=== PATIENT | male | born 1975 | race Two or more races ===

== ENCOUNTER → 2024-07-05 | Emergency (ER) | payer OTHER ==
[~2024-07-05] VITALS: Ht 180.3 cm; Wt 122.5 kg
[~2024-07-05] MED LIST: AMBIEN10 MG PO; PROZAC20 MG PO; SEROQUEL50 MG PO; XANAX2 MG PO
[2024-07-05 07:54] LABS: HEMATOCRIT 47.2 % (39.0-48.0); HEMOGLOBIN 15.9 g/dL (13-16.00); MEAN CORPUSCULAR HEMOGLOBIN 29.4 pg (27.00-32.0); MEAN CORPUSCULAR HGB CONC 33.7 g/dl (32.0-36.0); PLATELET COUNT 212 K/uL (150-450); RED BLOOD COUNT 5.43 M/uL (4.00-6.00); RED CELL DISTRIBUTION WIDTH 15.2 % (11.5-14.5)
[2024-07-05 08:38] LABS: INR 1.07; PARTIAL THROMBOPLASTIN TIME 27.5 SECONDS (22.0-34.0); PROTHROMBIN TIME 11.6 SECONDS (9.0-11.5)
[2024-07-05 08:44] LABS: ALBUMIN 4.6 gm/dL (3.4-5.0); ALKALINE PHOSPHATASE 98 U/L (50-136); ALT/SGPT 38 U/L (12-78); ANION GAP 13 (10.0-20.0); AST/SGOT 28 U/L (15-37); BILIRUBIN TOTAL 0.35 mg/dL (0.3-1.2); BILIRUBIN,CONJUGATED < 0.10 mg/dL (0.0-0.2); BILIRUBIN,UNCONJUGATED 0.25 mg/dL (0.0-0.6); BLOOD UREA NITROGEN 20 mg/dL (7-18); BUN CREA RATIO 18 (7.0-25.0); CALCIUM 9.7 mg/dL (8.5-10.1); CARBON DIOXIDE 25 mEq/L (21-32); CHLORIDE 107 mmol/L (98-107); CREATININE SERUM 1.12 mg/dL (0.70-1.30); GFR 69.68; GLOBULINA 4.2 G/DL (2.4-3.5); GLUCOSE FASTING 88 mg/dL (65-100); OSMOLALITY SERUM 283 MOSM/KG (275-295); POTASSIUM 3.98 mEq/L (3.5-5.1); SODIUM 141 mmol/L (136-145); TOTAL PROTEIN 8.8 gm/dL (6.4-8.2)
[2024-07-05 11:42] LABS: URINE APPEARANCE Cloudy; URINE BILIRRUBIN Negative (NEGATIVE); URINE BLOOD Negative; URINE COLOR Yellow; URINE GLUCOSE Negative (NEGATIVE); URINE KETONE Trace (NEGATIVE); URINE LEUKOCYTE Negative; URINE NITRATE Negative; URINE PROTEIN Trace (NEGATIVE); URINE UROBILINOGEN 0.2 E.U./dl
[2024-07-05 11:47] LABS: URINE CAST 3.35 uL (0.0-1.40); URINE EPITHELIAL CELLS 10.3 uL (0.0-38.8); URINE RBC 11.1 uL (0.0-20.8); URINE WBC 14.2 uL (0.0-23.2)
[2024-07-05 11:54] LABS: COCAINE POSITIVE (NEGATIVE); METHADONE NEGATIVE (NEGATIVE); OPIATES NEGATIVE (NEGATIVE); THC ( Cannabinoids) NEGATIVE (NEGATIVE)
== END | disposition designated cancer center or children's hospital (05) ==
LOC: ER 05:52
PROVIDERS: General Practice
DX: R45.851 Suicidal ideations (principal); Z20.822 Contact with and (suspected) exposure to COVID-19; Z88.0 Allergy status to penicillin

== ENCOUNTER 2025-03-29 10:17 | Emergency (ER) | payer OTHER ==
[~2025-03-29] VITALS: Ht 180.3 cm; Wt 116.1 kg
[2025-03-29] MEDS ORDERED: LORazepam 2 MG/ML VIAL IM ONE (10:30)
[2025-03-29] MEDS ORDERED: 0.9 % SODIUM CHLORIDE 1,000 ML IV SCH (10:30)
[2025-03-29 10:52] LABS: BASO % 0.2 % (0.1-1.2); EOS # 0.03 (0.04-0.54); EOS % 0.3 % (0.7-7.0); LYMPH # 2.08 (1.18-3.74); LYMPH % 19.8 % (19.3-53.1); MEAN PLATELET VOLUME 11.00 fl (9.4-12.4); MONO # 0.85 (0.24-0.82); MONO % 8.1 % (4.7-12.5); NEUT # 7.49 (1.56-6.13); NEUT % 71.3 % (34.0-71.1); RED CELL DISTRIBUTION WIDTH 14.4 % (11.6-14.4)
[2025-03-29 11:19] LABS: ALT/SGPT 35.0 U/L (12-78); AST/SGOT 33.0 U/L (15-37); BILIRUBIN TOTAL 0.7 mg/dL (0.3-1.2); BUN CREA RATIO 15.0 (7.0-25.0); CREATININE SERUM 0.91 mg/dL (0.70-1.30); GFR 88.19; GLOBULINA 3.7 G/DL (2.4-3.5); GLUCOSE FASTING 89.0 mg/dL (65-100); OSMOLALITY SERUM 279.0 MOSM/KG (275-295)
[2025-03-29 11:40] LABS: COVID-19 AG NEGATIVE (NEGATIVE)
[2025-03-29 12:08] LABS: URINE APPEARANCE Clear; URINE BILIRRUBIN Negative (NEGATIVE); URINE BLOOD Negative; URINE COLOR Yellow; URINE GLUCOSE Negative (NEGATIVE); URINE LEUKOCYTE Negative; URINE NITRATE Negative; URINE PROTEIN Trace (NEGATIVE); URINE UROBILINOGEN 1.0 E.U./dl
[2025-03-29 12:11] LABS: URINE BACTERIA 8.3 uL (0.0-1933); URINE EPITHELIAL CELLS 7.0 uL (0.0-38.8); URINE RBC 6.8 uL (0.0-20.8); URINE WBC 8.1 uL (0.0-23.2)
[2025-03-29 12:17] LABS: URINE CAST 0.14 uL (0.0-1.40); URINE KETONE 40 (NEGATIVE)
[2025-03-29 12:43] LABS: COCAINE POSITIVE (NEGATIVE); METHADONE NEGATIVE (NEGATIVE); OPIATES NEGATIVE (NEGATIVE); THC ( Cannabinoids) NEGATIVE (NEGATIVE)
== END 2025-03-29 16:53 | disposition designated cancer center or children's hospital (05) ==
LOC: ER 10:17
PROVIDERS: Emergency Medicine
DX: T14.91XA Suicide attempt, initial encounter (principal); X83.8XXA Intentional self-harm by other specified means, initial encounter; Y93.89 Activity, other specified; Y92.89 Other specified places as the place of occurrence of the external cause; Z20.822 Contact with and (suspected) exposure to COVID-19; Z88.0 Allergy status to penicillin
CPT/HCPCS: 36415; 71045; 93005; 96365; 96366; 99282; J3490; J7030